=== PATIENT | male | born 1930 | race Caucasian/White ===

== ENCOUNTER 2018-07-01 13:24 | Emergency (ER) | payer MEDICARE, OTHER ==
[~2018-07-01] VITALS: Ht 182.9 cm; Wt 95.2 kg
[~2018-07-01 13:24] MED LIST: Percocet 5-3251 EACH PO
[2018-07-01] MEDS ORDERED: PYRI60 PO (13:38)
[2018-07-01] MEDS ORDERED: ALLO100 PO (14:02)
[2018-07-01] MEDS ORDERED: CYAN500 PO (14:03)
[2018-07-01] MEDS ORDERED: ELIQUIS2.5 MG PO (14:03)
[2018-07-01] MEDS ORDERED: CARV6.25 PO (14:03)
[2018-07-01] MEDS ORDERED: ERGO400 PO (14:04)
[2018-07-01] MEDS ORDERED: TAMS.4ER PO (14:04)
[2018-07-01] MEDS ORDERED: FURO20 PO (14:04)
[2018-07-01] MEDS ORDERED: LISI20 PO (14:04)
[2018-07-01] MEDS ORDERED: ISOMON20 (14:05)
[2018-07-01 14:52] LABS: PCO2 Arterial 38.3 mmHg (35-45); PO2 Arterial 75.8 mmHg (80-100); pH Blood Arterial 7.43 (7.35-7.45)
[2018-07-01 15:07] LABS: BASOPHILS ABSOLUTE AUTO 0.03 K/mm3 (0.00-0.23); BASOPHILS PERCENT AUTO 0 % (0-2); EOSINOPHILS ABSOLUTE AUTO 0.72 K/mm3 (0.00-0.68); EOSINOPHILS PERCENT AUTO 9 % (0-6); Hemoglobin 12.3 g/dL (13.5-17.5); IMMATURE GRAN ABSOLUTE AUTO 0.04 K/mm3 (0.00-0.10); IMMATURE GRAN PERCENT AUTO 1 % (0-1); LYMPHOCYTES ABSOLUTE AUTO 1.07 K/mm3 (0.84-5.20); LYMPHOCYTES PERCENT AUTO 14 % (21-46); MONOCYTES ABSOLUTE AUTO 0.61 K/mm3 (0.16-1.47); MONOCYTES PERCENT AUTO 8 % (4-13); Mean Corpuscular HGB 31.9 pg (26.0-34.0); Mean Corpuscular HGB Conc 32.4 g/dL (31.5-36.5); Mean Corpuscular Volume 98 fL (80-100); Mean Platelet Volume 10.5 fL (9.1-12.4); NEUTROPHILS ABSOLUTE AUTO 5.39 K/mm3 (1.96-9.15); NEUTROPHILS PERCENT AUTO 69 % (41-73); Platelet Count 211 K/mm3 (150-400); RDW Standard Deviation 46.9 fL (35.1-46.3); Red Blood Cell Count 3.86 M/mm3 (4.30-5.90); White Blood Cell Count 7.86 K/mm3 (4.00-11.30)
[2018-07-01 15:29] LABS: Albumin, Blood 3.3 g/dL (3.4-5.0); Albumin/Globulin Ratio 0.9 (0.8-1.8); Bilirubin, Total 1.1 mg/dL (0.1-1.0); Bun/Creatinine Ratio 26.8 (12.0-20.0); Calcium, Blood 8.7 mg/dL (8.5-10.1); Creatinine, Blood 1.49 mg/dL (0.60-1.20); Globulin, Blood 3.5 g/dL (2.2-4.0); Total Protein, Blood 6.8 g/dL (6.4-8.2)
== END 2018-07-01 19:00 | disposition short-term general hospital (02) ==
LOC: ER 13:24
PROVIDERS: Internal Medicine
DX: G70.01 Myasthenia gravis with (acute) exacerbation (principal); E11.9 Type 2 diabetes mellitus without complications; I10 Essential (primary) hypertension; I48.91 Unspecified atrial fibrillation; Z79.899 Other long term (current) drug therapy; Z79.01 Long term (current) use of anticoagulants
CPT/HCPCS: 36600; 71045; 80053; 82803; 85025; 99285-25

== ENCOUNTER 2019-08-09 11:49 | Inpatient (IN) | payer OTHER, MEDICARE ==
[~2019-08-09] VITALS: Ht 180.3 cm; Wt 88.3 kg
[~2019-08-09 11:49] MED LIST changes: +ALLO100 PO; +Coreg12.5 MG PO; +ELIQUIS2.5 MG PO; +FURO20 PO; +ISOMON20; +PYRI60 PO; +Prinivil10 MG PO
[2019-08-09] MEDS ORDERED: Amlodipine Besy10 MG PO (12:19)
[2019-08-09] MEDS ORDERED: CLOB.05TO (12:21)
[2019-08-09] MEDS ORDERED: Glucose4 GM PO (12:22)
[2019-08-09] MEDS ORDERED: NOVOLOG FL100 UNIT/1 SC (12:25)
[2019-08-09] MEDS ORDERED: INSULANPEN SC (12:25)
--- NOTE | 2019-08-09 14:55 | NUR ---
Brief initial palliative care consult in the ER. Jarocho lives with his at home. He is a . 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 His Tyree reports that she has seen a rapid decline the past 3-4 days, but she has noticed a changed for several weeks. He is bedbound and incontinent. He is having difficulty swallowing and has some delay in his speech. Jarocho sleeps on and off during our visit. Tyree reports that if the cause of Jarocho's emboli could be caused from an infection, she would like to have it treated. She is open to discussion re: hospice if no source of infection is found on the echo. She reports his qualify of life has declined rapidly in the past week. Jarocho and Tyree open to discussion re: POLST form. They filled it out and Tyree signed it for Jarocho. They are requesting that the hospitalist sign it. They confirmed his DNR status at this time. Plan at this time is to admit and have an echo and get therapies involved as pt has had a decline in function. POLST form will need to be signed by . Tyree reports that [facility]. She would like to have an overbed table if possible. She reports Jarocho has been unable to get out of bed and hasn't been able to use the toilet. If he regains some strength back, a BSC may also be helpful. PC will plan to follow up in the next day or so after echo to help determine a plan of care. Will plan to notify [facility] team of [facility]'s [facility].
[2019-08-09 15:09] LABS: BASOPHILS ABSOLUTE AUTO 0.01 K/mm3 (0.00-0.23); BASOPHILS PERCENT AUTO 0 % (0-2); EOSINOPHILS ABSOLUTE AUTO 0.09 K/mm3 (0.00-0.68); EOSINOPHILS PERCENT AUTO 1 % (0-6); Hematocrit 34.4 % (37.0-53.0); Hemoglobin 11.4 g/dL (13.5-17.5); IMMATURE GRAN PERCENT AUTO 1 % (0-1); LYMPHOCYTES ABSOLUTE AUTO 0.77 K/mm3 (0.84-5.20); LYMPHOCYTES PERCENT AUTO 5 % (21-46); MONOCYTES ABSOLUTE AUTO 1.09 K/mm3 (0.16-1.47); MONOCYTES PERCENT AUTO 7 % (4-13); Mean Corpuscular HGB 31.8 pg (26.0-34.0); Mean Corpuscular HGB Conc 33.1 g/dL (31.5-36.5); Mean Corpuscular Volume 96 fL (80-100); Mean Platelet Volume 10.4 fL (9.1-12.4); NEUTROPHILS ABSOLUTE AUTO 13.76 K/mm3 (1.96-9.15); NEUTROPHILS PERCENT AUTO 87 % (41-73); Platelet Count 274 K/mm3 (150-400); RDW Coefficient Variation 12.8 % (11.7-14.2); RDW Standard Deviation 45.2 fL (35.1-46.3); Red Blood Cell Count 3.59 M/mm3 (4.30-5.90); White Blood Cell Count 15.82 K/mm3 (4.00-11.30)
[2019-08-09 15:21] LABS: International Normalized Ratio 1.33; Prothrombin Time Results 13.7 Sec (9.7-11.5)
[2019-08-09 15:34] LABS: Albumin, Blood 2.3 g/dL (3.4-5.0); Albumin/Globulin Ratio 0.5 (0.8-1.8); Bilirubin, Total 2.3 mg/dL (0.1-1.0); Bun/Creatinine Ratio 33.3 (12.0-20.0); Calcium, Blood 8.8 mg/dL (8.5-10.1); Creatinine, Blood 1.77 mg/dL (0.60-1.20); Globulin, Blood 4.7 g/dL (2.2-4.0); Potassium, Blood 4.7 mmol/L (3.5-5.5)
[2019-08-09 15:43] LABS: Troponin I 0.493 ng/mL (0.000-0.040)
[2019-08-09] MEDS ORDERED: VITAMIN B-121000 MCG PO (17:17)
[2019-08-09] MEDS ORDERED: TAMS.4ER PO (17:17)
[2019-08-09] MEDS ORDERED: VITAMIN D31000 UNI2 PO (17:17)
[2019-08-09] MEDS ORDERED: Bumetanide0.5 MG PO (17:18)
[2019-08-09] MEDS ORDERED: Mupirocin22 GM TOP (17:19)
--- NOTE | 2019-08-09 17:37 | NUR ---
ECHOCARDIOGRAM COMPLETE
[2019-08-10 04:19] LABS: BASOPHILS ABSOLUTE AUTO 0.03 K/mm3 (0.00-0.23); BASOPHILS PERCENT AUTO 0 % (0-2); EOSINOPHILS ABSOLUTE AUTO 0.11 K/mm3 (0.00-0.68); EOSINOPHILS PERCENT AUTO 1 % (0-6); Hematocrit 33.1 % (37.0-53.0); Hemoglobin 10.6 g/dL (13.5-17.5); IMMATURE GRAN ABSOLUTE AUTO 0.11 K/mm3 (0.00-0.10); IMMATURE GRAN PERCENT AUTO 1 % (0-1); LYMPHOCYTES ABSOLUTE AUTO 0.78 K/mm3 (0.84-5.20); LYMPHOCYTES PERCENT AUTO 6 % (21-46); MONOCYTES ABSOLUTE AUTO 1.07 K/mm3 (0.16-1.47); MONOCYTES PERCENT AUTO 8 % (4-13); Mean Corpuscular HGB 30.5 pg (26.0-34.0); Mean Corpuscular Volume 95 fL (80-100); Mean Platelet Volume 10.7 fL (9.1-12.4); NEUTROPHILS PERCENT AUTO 85 % (41-73); Platelet Count 258 K/mm3 (150-400); RDW Standard Deviation 45.3 fL (35.1-46.3); Red Blood Cell Count 3.47 M/mm3 (4.30-5.90)
[2019-08-10 04:35] LABS: Bun/Creatinine Ratio 35.5 (12.0-20.0); Calcium, Blood 8.8 mg/dL (8.5-10.1); Creatinine, Blood 1.69 mg/dL (0.60-1.20); Potassium, Blood 4.6 mmol/L (3.5-5.5)
--- NOTE | 2019-08-10 07:40 | NUR ---
SHIFT SUMMARY PT IS CURRENTLY SLEEPING. PT IS SLIGHTLY CONFUSED S/P ACUTE EMBOLIC STROKE, HE KNOWS HIS NAME AND WILL FOLLOW DIRECTIONS - BUT DIDN'T KNOW WHERE HE WAS OR WHO THE PRESIDENT OF THE [employer] WAS. PT HAS SLURRED SPEACH, AND WAS SLOW TO RESPOND (VERY DIFFICULT TO UNDERSTAND), BUT NO FACIAL DROOPING OR UNEQUAL PUPILLARY ACTION. HE WAS ON BIPAP OVERNIGHT AND WAS TOLERATING IT WELL, BUT JUST RECENTLY TOOK IT OFF, HE WAS MAINTAINING SAT'S AND NOT BECOMING APNEIC SO I LEFT IT OFF FOR NOW. HE IS IN AFIB WITH A RATE 47-60'S (MAINLY FLOATING IN THE 60'S). 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 HE IS INCONTINENT AND VOIDING IN ATTENDS (THREE CHANGES OVERNIGHT). NO BM OVERNIGHT, BUT HAS ACTIVE BS. THERE IS A REDDENED AREA AROUND HIS COCCYX. LR IS INFUSING AT 200ML/HR. BED IS LOW AND LOCKED. CALL LIGHT WITHIN REACH.
--- NOTE | 2019-08-10 07:41 | NUR ---
ASSUMED CARE: PT RESTING QUIETLY AT THIS TIME. NO ACUTE NEEDS OR CONCERNS NOTED
--- NOTE | 2019-08-10 18:26 | NUR ---
SHIFT SUMMARY: DR JAIMES CAME TO SEE PT AND FAMILY AND GAVE THEM UPDATE. DR AWARE THAT PT HAS BEEN HAVING LEFT SHOULDER PAIN. DR ALSO AWARE THAT DAUGHTER STATES THAT PT MAY BE TOO MUCH CARE FOR AT THIS TIME OR THAT CARE GIVERS MAY BE NEEDED. PT EVALUATED BY ST AND PHYSICAL THERAPY. PLAN IS FOR FURTHER MONITORING AND EVALUATION BY THERAPIES INTO THE WEEK. FAMILY AWARE. NO ACUTE NEEDS OR CONCERNS AT THIS TIME.
--- NOTE | 2019-08-11 04:58 | NUR ---
END OF SHIFT SUMMARY NO ACUTE CHANGES THIS SHIFT. NEURO CHECKS REMAIN UNCHANGED FROM BEGINNING OF SHIFT. PT CONTINUES TO BE SLOW TO RESPOND BUT DOES MAKE APPROPRIATE RESPONSES. MOVES ALL EXTREMITIES BUT IS LIMITED DUE TO WEAKNESS. PT HAS BEEN USING HOME BIPAP W/OUT DIFFICULTY. VSS. PT HAS HAD A FEW INCONTINENT VOIDS/BM'S. PT BEING TURNED BY STAFF. MEPILEX PLACED OVER COCCYX AREA. OTHERWISE, PT HAS BEEN RESTING QUIETLY IN ROOM WITH CALL LIGHT NEXT TO HIM. BED ALARM IN PLACE. WILL CONTINUE TO MONITOR PT UNTIL SHIFT CHANGE.
--- NOTE | 2019-08-11 14:38 | NUR ---
PAL CARE VISIT - MET WITH AND PT IN ROOM AFTER REVIEW OF EMR. POLST REMAINS UNSIGNED AT PT'S ROOM. SPOKE WITH RN RE: ASKING DR TO SIGN AND NOTE LEFT WITH SAME REQUEST. SPOKE WITH PT AND IN ROOM. PT WITH HOB ELEVATED, WAITING FOR LUNCH. HE IS ORIENTED ENOUGH TO ASK IF HE'S RECEIVED BLD GLUCOSE TESTING AND INSULIN BEFORE LUNCH BUT DID NOT REMEMBER THAT RN WAS JUST IN THE ROOM TO ADMINISTER INSULIN AC. HE APPEARS PROFOUNDLY FATIGUED AND DEPRESSED. HE DID NOT INTERACT WITH ME OR HIS DURING MY VISIT BUT WAS AWAKE, WITH EYES CLOSED. DR/PT/OT/ST NOTES REVIEWED. IT APPEARS, AND REQUESTS THAT PT BE EVALUATED FOR REHAB STAY. SHE IS CLEAR THAT SHE IS UNABLE TO PROVIDE PT'S CARE ANY LONGER AND UNLESS THAT IS VAST IMPROVEMENTS IN HIS INDEPENDENCE AND STRENGTH WITH TRANSFERS AND MOBILITY. CURRENTLY SHE AND PT WOULD BE UNABLE TO MANAGE REQUIRED BED MOBILITY AND TURNING, CHANGING ATTENDS. STATES THEY CANNOT AFFORT LTC AND HAVE NOT BEEN CONNECTED WITH [facility] BEFORE. SHE IS LICENSED A [facility] PROVIDER AND HAS ONE OR TWO RESIDENTS IN THEIR HOME NOW. HER GRANDSON WAS LIVING IN THE HOME TEMPORARILY TO HELP HER WITH PT BUT HE WILL BE LEAVING SOON AND THE TWO OF THEM WERE UNABLE TO MANAGE TRANSFERS OF PT IN HIS CURRENT WEAKENED STATE. I GAVE MIGUEL THE NUMBER TO CONTACT [facility] FIRST THING IN THE AM TO REQUEST SCREENING FOR SERVICES AND FINANCIAL ASSIST WITH CARE. I INSTRUCTED HER THAT A HEAD OF OPERATION AND LOGISTICS WOULD BE ARRANGING/HELPING WITH THE DC PLAN, ESPECIALLY IF PT QUALIFIES FOR SNF/REHAB STAY. THOUGHT IF HE WENT TO REHAB THAT PT COULD STAY THERE INDEFINITELY. EDUCATED HER ON THE SHORT TERM NATURE OF SNF STAY AND MEDICARE COVERAGE DEPENDENT UPON PROGRESS AND THAT IT WAS NOT A LONG-TERM PLACEMENT WITH MEDICARE COVERAGE. VM LEFT FOR CM DEPARTMENT RE: 'S REQUEST TO MEET WITH THEM TOMORROW AM AND PT'S PARTICULAR NEEDS AT THIS TIME. ORDER ENTERED FOR CM YESTERDAY WITH REQUEST FOR ASSIST WITH DC PLANNING. CONTINUES TO APPEAR FRAIL, ANXIOUS, ON THE VERGE OF TEARS. SHE REPORTS SHE HAS SIGNIFICANT HEALTH ISSUES HERSELF, TWO BONE ON BONE KNEES THAT CANNOT BE REPAIRED DUE TO RISKS WITH SURGERY. SHE CONT TO REQUEST THAT POLST BE COMPLETED AND I TOLD HER WE WOULD KEEP WORKING ON DR SIGNATURE AND GET IT SCANNED TO MEDICAL RECORDS AND RETURNED TO HER ONCE SIGNED.
--- NOTE | 2019-08-11 17:36 | NUR ---
SHIFT SUMMARY PT ALERT TO SELF, PLACE, AND SITUATION. PT CONFUSED ON DATE AND TIME. VS STABLE. O2 SATS REMAIN ABOVE 90% ON RA. PT USES HOME CPAP FOR SLEEPING. HR AFIB WITHA RANGE FROM 50-60. HR DID TOUCH DOWN TO 40, BUT CAME RIGHT BACK UP. BP STABLE. PT DENIES ANY PAIN. PT REPOSITIONED Q2H. ATTENDS IN PLACE DUE TO INCONTINENCE. AT BEDSIDE. WILL CONTINUE TO MONITOR AND REPORT TO ONCOMING RN. CALL LIGHT IN REACH.
[2019-08-12 03:59] LABS: BASOPHILS ABSOLUTE AUTO 0.02 K/mm3 (0.00-0.23); BASOPHILS PERCENT AUTO 0 % (0-2); EOSINOPHILS ABSOLUTE AUTO 0.24 K/mm3 (0.00-0.68); EOSINOPHILS PERCENT AUTO 2 % (0-6); Hematocrit 32.4 % (37.0-53.0); Hemoglobin 10.2 g/dL (13.5-17.5); IMMATURE GRAN ABSOLUTE AUTO 0.09 K/mm3 (0.00-0.10); IMMATURE GRAN PERCENT AUTO 1 % (0-1); LYMPHOCYTES ABSOLUTE AUTO 0.68 K/mm3 (0.84-5.20); LYMPHOCYTES PERCENT AUTO 5 % (21-46); MONOCYTES ABSOLUTE AUTO 0.91 K/mm3 (0.16-1.47); MONOCYTES PERCENT AUTO 7 % (4-13); Mean Corpuscular HGB 30.6 pg (26.0-34.0); Mean Corpuscular HGB Conc 31.5 g/dL (31.5-36.5); Mean Corpuscular Volume 97 fL (80-100); Mean Platelet Volume 10.5 fL (9.1-12.4); NEUTROPHILS ABSOLUTE AUTO 11.39 K/mm3 (1.96-9.15); NEUTROPHILS PERCENT AUTO 85 % (41-73); Platelet Count 271 K/mm3 (150-400); RDW Coefficient Variation 12.9 % (11.7-14.2); RDW Standard Deviation 46.3 fL (35.1-46.3); Red Blood Cell Count 3.33 M/mm3 (4.30-5.90); White Blood Cell Count 13.33 K/mm3 (4.00-11.30)
[2019-08-12 04:20] LABS: Bun/Creatinine Ratio 40.7 (12.0-20.0); Calcium, Blood 8.7 mg/dL (8.5-10.1); Creatinine, Blood 1.4 mg/dL (0.60-1.20); Potassium, Blood 4.6 mmol/L (3.5-5.5)
--- NOTE | 2019-08-12 05:28 | NUR ---
END OF SHIFT SUMMARY PT'S NEURO STATUS HAS NOT APPEARED TO HAVBE CHANGED THIS SHIFT. 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 PUPILS EQUALLY REACTIVE BUT SLUGGISH. PT HAS BEEN TURNED T/O THE NIGHT AND HAS BEEN CHANED MULTIPLE TIMES. CONDOM CATHWAS PLACED TO AID IN PREVENTING SKIN BREAKDOWN FROM PT'S CONSTANT VOIDING. PT HAS BEEN WEARING HIS HOME BIPAP ALL NIGHT WITH BRIEF PERIODS OFF OF IT. PT HAS HAD MULTIPLE INSTANCES OF BRADYCARDIA BUT HAS REBOUNDED BACK >50'S QUICKLY. BP STABLE. VSS. PT HAS NOT ATTEMPTED TO LEAVE BED TONNIGHT. WILL CONTINUE TO MONITOR UNTIL SHIFT CHANGE.
--- NOTE | 2019-08-12 06:33 | NUR ---
CONDOM CATH CONDOM CATH HAS PROVED UNSUCCESFUL AT STAYING ON PT. ULTIMATELY IT WAS REMOVED AND HAS NOT BEEN PLACED BACK ON.
--- NOTE | 2019-08-12 17:44 | NUR ---
SHIFT SUMMARY PT ALERT TO SELF, SITUATION, AND FOLLOWING DIRECTIONS. VS STABLE. HR AFIB WITH A RATE AVERAGING IN THE 50'S. BP STABLE. PT REPOSITIONED Q2H. ATTENDS IN PLACE DUE TO INCONTINENCE. PT AWAITING DISCHARGE TO SNF. WILL CONTINUE TO MONITOR AND REPORT TO ONCOMING RN. CALL LIGHT IN REACH. AT BEDSIDE.
--- NOTE | 2019-08-13 05:42 | NUR ---
END OF SHIFT SUMMARY NO ACUTE CHANGES THIS SHIFT. VSS. PT CONTINUES TO WEAR HOME CPAP T/O NIGHT, SPO2 >92%. PT CONSTANTLY SHIFTING T/O NOGHT WELL STAFF TURNING HIM. CONTINUAL CONTINENCE CHECKES IN PLACE, PT BRIEFS SOILED EVERY TIME PT CHECKED. PT HAS 1 SMALL BM THIS SHIFT. PT'S NEURO STATUS HAS NOT CHANGED. PT HAS BEEN ABLE TO COMMUNICATE NEEDS TO STAFF. BED ALARM IN PLACE. CALL LIGHT WITHIN REACH. WILL CONTINUE TO MONITOR UNTIL SHIFT CHANGE.
[2019-08-13] MEDS ORDERED: Humalog100 UNIT/3 SC (10:34)
--- NOTE | 2019-08-13 12:12 | NUR ---
DISCHARGE NOTE PT AND NOTIFIED OF PLAN TO DISCHARGE TO FACILITY. ALL ORDERS SENT TO [facility] BY CARE MANAGEMENT. REPORT CALLED TO NURSE TAKING OVER CARE. IV REMOVED. TRANSPORT IN TO TAKE PT.
== END 2019-08-13 12:13 | DRG 66 ==
LOC: ER 11:49 → PCU 16:38
PROVIDERS: Emergency Medicine; ADMIT Internal Medicine
DX: I63.40 Cerebral infarction due to embolism of unspecified cerebral artery (principal); E11.22 Type 2 diabetes mellitus with diabetic chronic kidney disease; I12.9 Hypertensive chronic kidney disease with stage 1 through stage 4 chronic kidney disease, or unspecified chronic kidney disease; N18.3 Chronic kidney disease, stage 3 (moderate); Z79.4 Long term (current) use of insulin; G47.33 Obstructive sleep apnea (adult) (pediatric); Z51.5 Encounter for palliative care; R26.89 Other abnormalities of gait and mobility; I48.0 Paroxysmal atrial fibrillation
CPT/HCPCS: 36415; 73030; 80048; 80053; 82947; 84484; 85025; 85610; 92526; 92610; 93005; 93010; 93306; 93880; 94762; 97110; 97112; 97162; 97166; 97530; 99285-25; J7030